=== PATIENT | female | born 1995 | race African-American/Black ===

== ENCOUNTER 2025-01-02 12:03 | Emergency (ER) | payer MEDICAID ==
[~2025-01-02] VITALS: Ht 162.6 cm; Wt 89.8 kg
[2025-01-02 12:19] VITALS: TEMP 97.8
[2025-01-02 12:47] LABS: PLATELET COUNT (AUTO) 322 K/uL (150-450); RED BLOOD CELL COUNT(AUTO) 4.82 MIL/uL (4.0-5.2); RED CELL DISTRIBUTION WIDTH 15.0 % (11.5-15.0); WHITE BLOOD COUNT (AUTO) 7.1 K/uL (4.3-11.0)
[2025-01-02 13:03] LABS: APPEARANCE,URINE CLEAR (CLEAR); BLOOD, URINE 1+ Ery/uL (NEGATIVE); LEUKOCYTE ESTERASE ,URINE NEGATIVE (NEGATIVE); NITRITE, URINE NEGATIVE (NEGATIVE); UGLUCOSE NEGATIVE (NEGATIVE)
[2025-01-02 13:05] LABS: CALCIUM, SERUM 8.7 mg/dL (8.5-10.1); CREATININE 0.5 mg/dL (0.6-1.3); SODIUM SERUM 139.0 mmol/L (136-145); UREA NITROGEN, BLOOD 8.0 mg/dL (7-18)
[2025-01-02 13:10] LABS: ADD URINE CULTURE YES
[2025-01-02] MEDS ORDERED: CEPH-570 PO (13:44)
[2025-01-02] MEDS ORDERED: ACETAMINOPHEN ES 500 MG TABLET PO ONE (14:00)
[2025-01-02] MEDS ORDERED: MAG HYDROX/AL HYDROX/SIMETH 30 ML UDC PO ONE (14:00)
[2025-01-02 14:18] VITALS: BP 117/70; O2SAT 99
== END 2025-01-02 14:18 | disposition home or self-care (01) ==
LOC: ER 12:03
DX: O20.0 Threatened abortion (principal); Z3A.13 13 weeks gestation of pregnancy
CPT/HCPCS: 36415; 76805-TC; 80048-TC; 81001; 84702-TC; 85025-TC; 87086-TC